=== PATIENT | male | born 1995 | race African-American/Black ===

== ENCOUNTER 2017-01-30 21:02 | Emergency (ER) | payer OTHER ==
[~2017-01-30] VITALS: Ht 188 cm; Wt 86.2 kg
[~2017-01-30 21:02] MED LIST: ACETAMINOPHEN325 M1 ORAL; ALBUTEROL SULF8.5 GM INH; AZITHROMYCIN250 MG ORAL; IBUPROFEN800 MG ORAL; NKM
[2017-01-30] MEDS ORDERED: Norco 5mg/325mg tab ORAL ONE (21:45)
[2017-01-30] MEDS ORDERED: HYDROCODON-ACE1 EA15 ORAL (21:48)
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
[2017-01-30 21:54] VITALS: BP 115/73
== END 2017-01-30 21:54 | disposition home or self-care (01) ==
LOC: EMR 21:37
DX: S39.012A Strain of muscle, fascia and tendon of lower back, initial encounter (principal); S16.1XXA Strain of muscle, fascia and tendon at neck level, initial encounter; Z88.0 Allergy status to penicillin; V43.52XA Car driver injured in collision with other type car in traffic accident, initial encounter; Y92.410 Unspecified street and highway as the place of occurrence of the external cause
CPT/HCPCS: 99283